=== PATIENT | male | born 1995 | race Hispanic/Latino ===

== ENCOUNTER 2021-02-24 13:54 | Emergency (ER) | payer OTHER, SELFPAY ==
[2021-02-24] MEDS ORDERED: TETANUS, DIPHTHERIA TOX,ADULT (TDVAX) 0.5 ML VIAL IM ONE (14:35)
[2021-02-24] MEDS ORDERED: Boostrix 0.5 ML (Tdap) VIAL ONE (14:37)
== END 2021-02-24 14:45 | disposition home or self-care (01) ==
LOC: NAV ERS 13:54
DX: S51.812A Laceration without foreign body of left forearm, initial encounter (principal); X78.1XXA Intentional self-harm by knife, initial encounter; Z23 Encounter for immunization
CPT/HCPCS: 12001; 90471; 90714; 90715